=== PATIENT | male | born 1960 | race Caucasian/White ===

== ENCOUNTER 2017-03-03 22:00 | Emergency (ER) | payer MEDICARE ==
[~2017-03-03] VITALS: Ht 167.6 cm; Wt 94.0 kg
[2017-03-03] MEDS ORDERED: TOPI100T24 PO (23:01)
[2017-03-03 23:05] LABS: HEMOGLOBIN 16.5 g/dL (13.7-18.0)
[2017-03-03 23:15] LABS: ASPARTATE AMINO TRANSFERASE 52 U/L (15-37); BLOOD UREA NITROGEN 10 mg/dL (7-18)
[2017-03-03] MEDS ORDERED: ESCI20TA10 PO (23:18)
[2017-03-03] MEDS ORDERED: FLUT1DIS IH (23:18)
[2017-03-03] MEDS ORDERED: ALBU90AE INH (23:18)
[2017-03-03 23:19] LABS: ACETAMINOPHEN < 2 mcg/mL (10-30)
[2017-03-04 00:13] LABS: DAU SCREEN DISCLAIMER
[2017-03-04] MEDS ORDERED: ALBUTEROL/IPRATROPIUM 2.5MG/0.5MG, 3 ML ONE (01:19)
[2017-03-04 05:03] VITALS: BP 120/72
== END 2017-03-04 05:04 | disposition home or self-care (01) ==
LOC: ED 23:59
DX: F31.9 Bipolar disorder, unspecified (principal); J44.9 Chronic obstructive pulmonary disease, unspecified; F10.20 Alcohol dependence, uncomplicated; F19.20 Other psychoactive substance dependence, uncomplicated
CPT/HCPCS: 36415; 71010; 80053; 80307; 80329; 85025; 93970; 94640; 99285; G0480